=== PATIENT | male | born 1995 | race Caucasian/White ===

== ENCOUNTER 2018-04-13 15:02 | Emergency (ER) | payer BC ==
[~2018-04-13] VITALS: Ht 182.9 cm; Wt 95.5 kg
[2018-04-13 15:16] VITALS: BP 144/88; TEMP 97.6
[2018-04-13] MEDS ORDERED: CEPHALEXIN500 M1 PO (17:21)
[2018-04-13 18:09] VITALS: PULSE 80
== END 2018-04-13 18:10 | disposition home or self-care (01) ==
LOC: COL.ER 15:02
DX: S81.811A Laceration without foreign body, right lower leg, initial encounter (principal); F17.210 Nicotine dependence, cigarettes, uncomplicated; Z23 Encounter for immunization; V00.131A Fall from skateboard, initial encounter; Y93.51 Activity, roller skating (inline) and skateboarding; Y92.830 Public park as the place of occurrence of the external cause